=== PATIENT | female | born 1965 | race Caucasian/White ===

== ENCOUNTER → 2017-10-04 | Outpatient (CLI) | payer OTHER | LOC: M LRY 17:08 | DX: M79.602 Pain in left arm (principal) ==

== ENCOUNTER 2017-11-02 07:01 | Day surgery (SDC) | payer OTHER ==
[2017-11-02] MEDS: NS 1,000 ML IV (07:16)
[2017-11-02] MEDS ORDERED: LIDOCAINE 2% INJ 100 MG/5 ML SDV (FOR ANES.) As Ordered (08:11)
[2017-11-02] MEDS ORDERED: PROPOFOL 200 MG/20 ML VIAL As Ordered ×2 (08:11)
== END 2017-11-02 08:55 | disposition home or self-care (01) ==
LOC: M OPP 07:01
DX: Z12.11 Encounter for screening for malignant neoplasm of colon (principal); Z80.0 Family history of malignant neoplasm of digestive organs; K64.0 First degree hemorrhoids; R12 Heartburn; K21.9 Gastro-esophageal reflux disease without esophagitis; Z88.8 Allergy status to other drugs, medicaments and biological substances
CPT/HCPCS: G0105

== ENCOUNTER → 2019-04-23 | Outpatient (REF) | payer OTHER ==
[~2019-04-23] MED LIST: IBUP200C25 PO; MULT1TAB10 PO; VITATAB11 PO; ZYRT10CA5 PO
== END ==
LOC: M SFHCWAGY 15:05
PROVIDERS: ATTEND Nurse Practitioner Women's Health
DX: R87.610 Atypical squamous cells of undetermined significance on cytologic smear of cervix (ASC-US) (principal); R87.810 Cervical high risk human papillomavirus (HPV) DNA test positive

== ENCOUNTER 2019-11-21 09:20 | Day surgery (SDC) | payer OTHER ==
[~2019-11-21] VITALS: Ht 188 cm; Wt 71.3 kg
[~2019-11-21 09:20] MED LIST changes: +CALC600C3 PO; +LEVO137T2 PO; +LIDOCAINE 1% MDV 20ML VIAL SQ PRN; +LIDOCAINE 2% INJ 100 MG/5 ML SYRINGE As Ordered ONE; +LR 1,000 ML IV ONE; +MIDAZOLAM INJ 2MG/2ML VIAL (J2250 PER 1MG) As Ordered ONE; +ROCURONIUM BROMIDE 50 MG/5 ML VIAL As Ordered ONE; +VITAD1000T PO; +fentaNYL 250 MCG/5 ML INJECTION (J3010) As Ordered ONE; +propofoL 200 MG/20 ML VIAL As Ordered ONE
[2019-11-21] MEDS ORDERED: OXYMETAZOLINE NASAL SPRAY (AFRIN) As Ordered ONE (10:51)
[2019-11-21] MEDS ORDERED: LIDOCAINE W/EPINEPHRINE 1% 20ML VIAL As Ordered ONE (10:51)
[2019-11-21] MEDS ORDERED: METHYLENE BLUE 0.5% (5MG/ML) 10 ML AMP (PROVAYBLUE)(Q9968 PER 1MG) As Ordered ONE (10:51)
[2019-11-21] MEDS ORDERED: EPINEPHrine INJ 1 MG/ML 1ML AMP As Ordered ONE (10:52)
[2019-11-21] MEDS ORDERED: SCOPOLAMINE 1MG TRANSDERMAL PATCH As Ordered ONE (10:52)
[2019-11-21] MEDS ORDERED: SCOPOLAMINE 1MG TRANSDERMAL PATCH TOP ONE (11:00)
[2019-11-21] MEDS ORDERED: LACRILUBE (AKWA TEARS) OPHTH OINT 3.5 GM As Ordered ONE (12:44)
[2019-11-21] MEDS ORDERED: dexameTHASONE 4 MG/ML 1ML VIAL (J1100 PER 1MG) As Ordered ONE (12:45)
[2019-11-21] MEDS ORDERED: ceFAZolin 1GM VIAL (J0690 PER 500MG) As Ordered ONE (12:45)
[2019-11-21] MEDS ORDERED: METOCLOPRAMIDE INJ 10MG/2ML VIAL (J2765 PER 1) As Ordered ONE (12:45)
[2019-11-21] MEDS ORDERED: ONDANSETRON 4MG/2ML VIAL As Ordered ONE (12:45)
[2019-11-21] MEDS ORDERED: SUGAMMADEX SODIUM 500 MG/5 ML VIAL (BRIDION) As Ordered ONE (12:46)
[2019-11-21] MEDS ORDERED: KETOROLAC 30 MG/ML 1ML VIAL IV PRN (12:49)
[2019-11-21] MEDS ORDERED: ONDANSETRON 4MG/2ML VIAL IV PRN (13:30)
[2019-11-21] MEDS ORDERED: PERCOCET 5MG/325MG TAB PO PRN ×2 (13:30→14:30)
[2019-11-21] MEDS ORDERED: LR 1,000 ML IV SCH (13:30)
[2019-11-21] MEDS ORDERED: fentaNYL 100 MCG/2 ML INJECTION (J3010) IV PRN (13:30)
[2019-11-21] MEDS ORDERED: METOCLOPRAMIDE INJ 10MG/2ML VIAL (J2765 PER 1) IV PRN (13:30)
[2019-11-21 14:37] VITALS: BP 117/62
[2019-11-21] MEDS ORDERED: IBUPROFEN 800 MG TAB PO PRN (21:00)
--- NOTE | 2020-01-02 11:11 | RO ---
DATE OF PROCEDURE: 11/21/2019 PREOPERATIVE DIAGNOSIS: Chronic left maxillary sinusitis, nasoseptal deviation. POSTOPERATIVE DIAGNOSIS: Chronic left maxillary sinusitis, nasoseptal deviation. PROCEDURE: Septoplasty, left maxillary antrostomy and ethmoidectomy endoscopic. SURGEON: Dr. Luis Elkins [employer]BILE [employer]TERY TECHNICIAN: ANESTHESIA: INDICATIONS: This is a patient who underwent bilateral osteotomies with LeFort advancement years ago with plates inserted into the maxilla. She presents now with a 2 year history having a foul smelly discharge from the left side of her nose. CT scan demonstrated that the left maxillary sinus was complete opacified. It was also noted the hardware that was placed many years ago had screws that actually penetrated the bone of the lateral maxilla to the sinus. DESCRIPTION OF PROCEDURE: Satisfactory general endotracheal anesthesia administered. Pharyngeal pack placed. The nose was prepared for surgery by placing cotton-soaked pledgets with Afrin solution to nasal cavity bilaterally. 1% Xylocaine with 1:100,000 epinephrine was used to inject into the nasal septum and inferior turbinates. A Chad incision was made on the left side of the nose. A mucoperichondrial flap and envelope was created on the left side of the nasal septum and carried down to the junction of the bony and cartilaginous septum. This was then with an elevator, and an envelope was then created on the right side of the septum. A Trinidad scissors was used to make a cut high in the perpendicular plate in the midportion of the vomer, and a central segment of the bony septum was resected. Next, with the round knife on the Stephanie elevator, a strip of cartilage was resected from the floor of the nose, mobilizing the quadrilateral cartilage and creating a swinging door. Then, a central segment of cartilaginous septum was resected, preserving a 1 cm dorsal and caudal strut. Double-action rongeur was used to take down deflected portions of the perpendicular plate, as well. Finally, the maxillary crest spur was taken down after elevating mucoperiosteum off both sides of it with a chisel. A segment of the resected cartilage was morselized and placed back into the septal envelope. The incision was closed using an interrupted #5-0 chromic suture. Then, a #4-0 plain suture was placed in a [id number] fashion through the two leaves of mucoperichondrium to appose them. This was done in order to allow room for the endoscopic surgery. She has an extremely narrow nose base on her maxillary inherent ramona anatomy. Septoplasty was done to permit better exposure of the lateral nasal on the left. With a zero degree telescope 1% xylocaine with 1:1000,000 epinephrine was used to inject the left lateral nasal wall of middle turbinate. Middle turbinate was medially infractured and then with the microdebrider the uncinate process was resected. The anatomy of the lateral nasal martin did seem somewhat different than what would be expected normally, but the ethmoid bulla was identified. It was perforated with the microdebrider and opened and resected. The maxillary sinus ostia however was quite recessed laterally and using probes it was finally identified, and once it was identified the microdebrider as well as backbiting forceps were used to try to enlarge it. Once the maxillary sinus was opened, thick inspissated secretions with the consistency of toothpaste were identified. It was possible to suction the majority out, then once this was complete we cleaned out and a large antrostomy created a right angle. Suction was placed into the sinus and then sinus was irrigated with antibiotic solution. Once this was completed, the nose and pharynx were irrigated and suctioned, and then NasoPore packing was placed into the middle meatus on this side. Pharyngeal pack was removed. Throat suctioned. The patient was then awakened, extubated, sent to recovery in satisfactory condition. She will be seen back in the office in 1 week.
== END 2019-11-21 14:47 | disposition home or self-care (01) ==
LOC: M SDC 09:20
PROVIDERS: ATTEND Specialist
DX: J32.0 Chronic maxillary sinusitis (principal); J34.2 Deviated nasal septum; E03.9 Hypothyroidism, unspecified; K21.9 Gastro-esophageal reflux disease without esophagitis; Z79.899 Other long term (current) drug therapy; Z88.8 Allergy status to other drugs, medicaments and biological substances
CPT/HCPCS: 30520; 31030; 31254; 31267; 88300; 88305; C2625; J0171; J0690; J1100; J2250; J2405; J2765; J3010; Q9968

== ENCOUNTER → 2023-01-06 | Outpatient (CLI) | payer OTHER ==
[~2023-01-06] MED LIST changes: -LIDOCAINE 1% MDV 20ML VIAL SQ PRN; -LIDOCAINE 2% INJ 100 MG/5 ML SYRINGE As Ordered ONE; -LR 1,000 ML IV ONE; -MIDAZOLAM INJ 2MG/2ML VIAL (J2250 PER 1MG) As Ordered ONE; +PROHANCE 279.3MG/ML 15ML VIAL ONE; -ROCURONIUM BROMIDE 50 MG/5 ML VIAL As Ordered ONE; +VITA100093 PO; -VITAD1000T PO; -fentaNYL 250 MCG/5 ML INJECTION (J3010) As Ordered ONE; -propofoL 200 MG/20 ML VIAL As Ordered ONE
== END ==
LOC: M PLAIMG 14:37
PROVIDERS: ATTEND Nurse Practitioner Family
DX: N64.4 Mastodynia (principal); T85.44XA Capsular contracture of breast implant, initial encounter; Y83.1 Surgical operation with implant of artificial internal device as the cause of abnormal reaction of the patient, or of later complication, without mention of misadventure at the time of the procedure

== ENCOUNTER 2023-07-14 06:08 | Observation (INO) | payer OTHER ==
[2023-07-14] VITALS (9 sets, daily range): BP systolic 109–132; BP diastolic 61–70; TEMP 97–98.8; O2SAT 95–98
[~2023-07-14] VITALS: Ht 188 cm; Wt 77.1 kg
[~2023-07-14 06:08] MED LIST changes: +HEPARIN SOD (PORCINE) 5000UNITS/ML 1ML VIAL/SYRINGE SQ ONE; -PROHANCE 279.3MG/ML 15ML VIAL ONE; +SYNT100T PO; +ceFAZolin SOD 2 GM in IV 1 EA IV ONE
[2023-07-14] MEDS ORDERED: LR 1,000 ML IV SCH ×2 (06:25→12:10)
[2023-07-14] MEDS ORDERED: GENTAMICIN SULF 80MG/2ML VIAL As Ordered ONE ×2 (07:19→09:07)
[2023-07-14] MEDS ORDERED: SCOPOLAMINE 1MG TRANSDERMAL PATCH TOP ONE (07:20)
[2023-07-14] MEDS ORDERED: LIDOCAINE 2% 100MG/5ML SDV (FOR ANES.) As Ordered ONE (07:23)
[2023-07-14] MEDS ORDERED: ONDANSETRON 4MG 2ML VIAL As Ordered ONE (07:23)
[2023-07-14] MEDS ORDERED: propofoL 200 MG/20 ML VIAL As Ordered ONE ×4 (07:23→11:50)
[2023-07-14] MEDS ORDERED: ROCURONIUM BROMIDE 50MG/5ML VIAL As Ordered ONE ×3 (07:23→09:41)
[2023-07-14] MEDS ORDERED: MIDAZOLAM INJ 2MG/2ML VIAL As Ordered ONE (07:26)
[2023-07-14] MEDS ORDERED: fentaNYL 250 MCG/5 ML INJECTION As Ordered ONE (07:26)
[2023-07-14] MEDS ORDERED: propofoL 500 MG/50 ML VIAL As Ordered ONE ×3 (07:28→10:53)
[2023-07-14] MEDS ORDERED: diphenhydrAMINE 50MG/ML VIAL As Ordered ONE (07:34)
[2023-07-14] MEDS ORDERED: dexmedeTOMIDine (4MCG/ML)200MCG/50ML BTL (PRECEDEX) As Ordered ONE (07:39)
[2023-07-14] MEDS ORDERED: METOCLOPRAMIDE INJ 10MG/2ML VIAL As Ordered ONE (07:58)
[2023-07-14] MEDS ORDERED: PHENYLephrine 500MCG 5ML (100MCG/ML) SYRINGE As Ordered ONE (08:19)
[2023-07-14] MEDS ORDERED: ACETAMINOPHEN 1000MG 100ML IV BAG As Ordered ONE (08:29)
[2023-07-14] MEDS ORDERED: SUGAMMADEX SODIUM 500 MG/5 ML VIAL (BRIDION) As Ordered ONE (10:44)
[2023-07-14] MEDS ORDERED: ceFAZolin 2 GM/D5W 50 ML IV BAG As Ordered ONE (11:56)
[2023-07-14] MEDS ORDERED: ONDANSETRON 4MG 2ML VIAL IV PRN ×2 (12:10→13:05)
[2023-07-14] MEDS ORDERED: fentaNYL 100 MCG/2 ML INJECTION IV PRN (12:10)
[2023-07-14] MEDS ORDERED: HYDROMORPHONE HCL 0.5 MG/ 0.5 ML SYRINGE IV PRN (12:10)
[2023-07-14] MEDS ORDERED: oxyCODONE 5MG TAB PO PRN (12:10)
[2023-07-14] MEDS ORDERED: LACRILUBE (AKWA TEARS) OPHTH OINT 3.5GM As Ordered ONE (12:47)
[2023-07-14] MEDS ORDERED: ACETAMINOPHEN TAB 650MG DOSE (2X325MG) PO PRN (13:05)
[2023-07-14] MEDS ORDERED: traMADol 50 MG TAB PO PRN (13:45)
[2023-07-14] MEDS: ceFAZolin SOD 1 GM in D5W MINI-BAG PLUS 50 ML IV SCH (17:17)
[2023-07-14] MEDS: LR 1,000 ML IV SCH (17:17)
[2023-07-15 00:11] VITALS: BP 104/56; TEMP 98.1; O2SAT 95
[2023-07-15] MEDS: ceFAZolin SOD 1 GM in D5W MINI-BAG PLUS 50 ML IV SCH ×2 (00:39→08:45)
[2023-07-15 02:00] VITALS: BP 105/56; TEMP 98; O2SAT 96
[2023-07-15] MEDS: LR 1,000 ML IV SCH (03:41)
[2023-07-15 05:50] VITALS: BP 106/57; TEMP 97.5; O2SAT 96
[2023-07-15] MEDS ORDERED: LEVOTHYROXINE 100MCG TABLET (0.1MG) PO SCH (06:00)
[2023-07-15 08:50] VITALS: BP 109/57; TEMP 98.1; O2SAT 96
== END 2023-07-15 13:40 | disposition home or self-care (01) ==
LOC: M SDC 06:08 → M RR INP 06:09 → M MS5PR 15:35
PROVIDERS: ADMIT Plastic Surgery Surgery of the Hand; ATTEND Plastic Surgery Surgery of the Hand
DX: T85.41XA Breakdown (mechanical) of breast prosthesis and implant, initial encounter (principal); T85.44XA Capsular contracture of breast implant, initial encounter; R94.31 Abnormal electrocardiogram [ECG] [EKG]; E03.9 Hypothyroidism, unspecified; G62.9 Polyneuropathy, unspecified; Z79.899 Other long term (current) drug therapy; Z88.5 Allergy status to narcotic agent; Z88.8 Allergy status to other drugs, medicaments and biological substances
CPT/HCPCS: 19316; 19330; 19370; 88300; 88302; 96365; 96366; C9290; G0378; J0131; J0665; J0690; J1100; J1200; J1580; J2250; J2371; J2405; J2765; J3010

== ENCOUNTER → 2024-02-07 | Outpatient (CLI) | payer OTHER ==
[~2024-02-07] MED LIST changes: -HEPARIN SOD (PORCINE) 5000UNITS/ML 1ML VIAL/SYRINGE SQ ONE; -ceFAZolin SOD 2 GM in IV 1 EA IV ONE
== END ==
LOC: M WHC 08:11
PROVIDERS: ATTEND Nurse Practitioner Family
DX: R92.2 Inconclusive mammogram (principal); N60.11 Diffuse cystic mastopathy of right breast; N63.24 Unspecified lump in the left breast, lower inner quadrant; Z98.86 Personal history of breast implant removal

== ENCOUNTER → 2024-08-10 | Outpatient (CLI) | payer OTHER | LOC: M OUTALCOH 12:46 | PROVIDERS: ATTEND Psychiatry & Neurology Psychiatry | DX: F10.20 Alcohol dependence, uncomplicated (principal) ==

== ENCOUNTER → 2024-08-15 | Outpatient (CLI) | payer OTHER | LOC: M WHC 15:18 | PROVIDERS: ATTEND Nurse Practitioner Family | DX: R92.8 Other abnormal and inconclusive findings on diagnostic imaging of breast (principal); R92.323 Mammographic fibroglandular density, bilateral breasts | CPT/HCPCS: 76642; 77066; G0279 ==

== ENCOUNTER → 2024-09-04 | Outpatient (RCR) | payer OTHER | LOC: M OUTALCOH 08-17 10:10 | PROVIDERS: ATTEND Psychiatry & Neurology Psychiatry | DX: F10.20 Alcohol dependence, uncomplicated (principal) ==

== ENCOUNTER → 2024-10-05 | Outpatient (RCR) | payer OTHER | LOC: M OUTALCOH 09-07 13:54 | PROVIDERS: ATTEND Psychiatry & Neurology Psychiatry | DX: F10.20 Alcohol dependence, uncomplicated (principal) ==

== ENCOUNTER 2024-10-19 13:59 | Outpatient (RCR) | payer OTHER | END 2024-11-02 | LOC: M OUTALCOH 13:59 | PROVIDERS: ATTEND Psychiatry & Neurology Psychiatry | DX: F10.20 Alcohol dependence, uncomplicated (principal) ==

== ENCOUNTER → 2025-03-06 | Outpatient (CLI) | payer OTHER | LOC: M WHC 10:06 | PROVIDERS: ATTEND Nurse Practitioner Family | DX: R92.8 Other abnormal and inconclusive findings on diagnostic imaging of breast (principal) ==